=== PATIENT | male | born 1985 | race Caucasian/White ===

== ENCOUNTER 2020-03-22 17:11 | Inpatient (IN) | payer BC ==
--- NOTE | 2020-03-22 18:11 | BHS.RME ---
Substance Use & Tx History - Substance Use History Alcohol Substance amount: 1 pint Frequency of use: Daily Substance route: Oral Hypnotics/Other Sedatives Substance amount: klonopin Frequency of use: Daily Substance route: Oral - [facility] Treatment [facility] for Bipolar I , cociane induced jolene) Physical/Psych/Mental Status - Behavior General Behavior: Increased activity (restlessness, agitation) Eye Contact: Normal - Cooperativeness Cooperativeness: Cooperative - Thinking Thought Processes: Logical Thought content: Future oriented - Physical Health Problems Is patient presently having any pain?: Yes (right clavicle frx 5 weeks ago ) Does patient presently have any injuries (include location): Yes (as above ) Does patient currently have a fever: No CIWA Nausea/Vomitin Muscle Tremors: 4-Moderate,w/Arms Extend Anxiety: 4-Mod. Anxious/Guarded Agitation: 4-Moderately Restless Paroxysmal Sweats: No Perspiration Orientation: 1-Uncertain about Date Tacttile Disturbances: 0-None Auditory Disturbances: 2-Mild Harshness/Frighten Visual Disturbances: 3-Moderate Sensitivity Headache: 3-Moderate CIWA-Ar Total Score: 23
--- NOTE | 2020-03-22 18:16 | HP ---
CIWA Score Nausea/Vomitin Muscle Tremors: 4-Moderate,w/Arms Extend Anxiety: 4-Mod. Anxious/Guarded Agitation: 4-Moderately Restless Paroxysmal Sweats: No Perspiration Orientation: 1-Uncertain about Date Tacttile Disturbances: 0-None Auditory Disturbances: 2-Mild Harshness/Frighten Visual Disturbances: 3-Moderate Sensitivity Headache: 3-Moderate CIWA-Ar Total Score: 23 - Admission Criteria OASAS Guidelines: Admission for Medically Managed Detox: Requires at least one of the followin. CIWA greater than 12 2. Seizures within the past 24 hours 3. Delirium tremens within the past 24 hours 4. Hallucinations within the past 24 hours 5. Acute intervention needed for co occurring medical disorder 6. Acute intervention needed for co occurring psychiatric disorder 7. Severe withdrawal that cannot be handled at a lower level of care (continued vomiting, continued diarrhea, abnormal vital signs) requiring intravenous medication and/or fluids 8. Admission ROS [facility] Allergies/Adverse Reactions: Allergies Allergy/AdvReac Type Severity Reaction Status Date / Time Fish Containing Products Allergy Verified 03/22/20 18:08 Penicillins Allergy Verified 03/22/20 18:08 History of Present Illness: 34 y.o male requesting detox from alcohol and klonopin use . alcohol use - 1 pint x 3 years , w/d seizures , latest seizure 1 week ago , not on meds klonpin 8 mg /day > 10 years MMTP x 4 .5 years . 140 mg @ [facility] latest today , denies opiate use since being on Methadone , opiate since age 17 , IV since age 19 , stopped 4 years ago . cocaine - 1 gr/day via inhalation , IV in the past tobacco - 1/2 ppd since age 19 PMHX : denies PSych : bipolar d/o , suicide attempt " years ago " OD on heroin 2014 PSHx : denies Exam Limitations: Clinical Condition - Review of Systems Constitutional: Loss of Appetite EENT: reports: No Symptoms Reported Respiratory: reports: No Symptoms reported Cardiac: reports: No Symptoms Reported GI: reports: Diarrhea, Poor Appetite : reports: No Symptoms Reported Musculoskeletal: reports: Other (feet from walking , r clavicle 5 weeks ago [place] , [facility] , left AMA , went to [facility] did not fup w/ orthopedics as instructed.) Integumentary: reports: Other (groin from rubbing skin against pants w. walking) Neuro: reports: Headache, Tremors, Unsteady Gait Endocrine: reports: No Symptoms Reported Psychiatric: reports: Agitated, Anxious, Disorientated Patient History - Smoking Cessation Smoking history: Current every day smoker Have you smoked in the past 12 months: Yes Hx Chewing Tobacco Use: No Initiated information on smoking cessation: Yes 'Breaking Loose' booklet given: 03/22/20 Admission Physical Exam BHS - Physical General Appearance: Yes: Disheveled, Mild Distress, Moderate Distress, Tremorous, Anxious HEENTM: Yes: EOMI, Hearing grossly Normal, Normocephalic, Normal Voice Respiratory: Yes: Chest Non-Tender, Lungs Clear, Normal Breath Sounds, No Respiratory Distress, No Accessory Muscle Use Neck: Yes: No masses,lesions,Nodules, Trachea in good position Cardiology: Yes: Regular Rhythm, Regular Rate, S1, S2 Abdominal: Yes: Non Tender, Soft Back: Yes: Normal Inspection Musculoskeletal: Yes: Gait Steady, Joint Stiffness (right shoulder , mild tenderness to palpation lateral 1/3 rd clavicle , no edema/ no deformity) Extremities: Yes: Normal Capillary Refill, Normal Range of Motion, Non-Tender, Tremors Neurological: Yes: Motor Strength 5/5, Normal Mood/Affect, Disoriented, Depressed Affect Integumentary: Yes: Warm, Moist ([place] feet w/ blistering , reprots he has been wlaking/ on his feet x several days ' duration .) - Diagnostic (1) Alcohol abuse Current Visit: Yes Status: Chronic (2) Sedative dependence with current use Current Visit: Yes Status: Chronic (3) Cocaine dependence Current Visit: Yes Status: Chronic Qualifiers: Substance use status: uncomplicated Qualified Code(s): F14.20 - Cocaine dependence, uncomplicated (4) Opioid dependence on agonist therapy Current Visit: Yes Status: Chronic Breathalyzer - Breathalyzer Breathalyzer: 0 Urine Drug Screen - Test Device Lot number: [id number] Expiration date: 05/23/21 - Control Is test valid?: Yes - Results Drug screen NEGATIVE: No Urine drug screen results: LARISSA-Cocaine, FEN-Fentanyl, MTD-Methadone Inpatient Rehab Admission - Rehab Decision to Admit Inpatient rehab admission?: No
[2020-03-22] MEDS ORDERED: MAG HYDROX/AL HYDROX/SIMETH 30 ML UNIT-DOSE CUP PO PRN (18:21)
[2020-03-22] MEDS ORDERED: METHOCARBAMOL 500 MG TABLET PO PRN (18:21)
[2020-03-22] MEDS ORDERED: MAGNESIUM HYDROX 2400MG/30ML ORAL SUSPENSION 30 ML CUP PO PRN (18:21)
[2020-03-22] MEDS ORDERED: IBUPROFEN 400 MG TABLET (FP) PO PRN (18:21)
[2020-03-22] MEDS ORDERED: BISMUTH SUBSALICYLATE 524 MG/30 ML UD PO PRN (18:21)
[2020-03-22] MEDS ORDERED: MENTHOL/PHENOL 1 EACH UD MM PRN (18:21)
[2020-03-22] MEDS ORDERED: hydrOXYzine PAMOATE 25 MG CAPSULE (FP) PO PRN (18:21)
[2020-03-22] MEDS ORDERED: MAGNESIUM CITRATE 300 ML BOTTLE PO PRN (18:21)
[2020-03-22] MEDS ORDERED: ACETAMINOPHEN 325 MG TABLET (FP) PO PRN ×2 (18:21)
[2020-03-22 20:00] VITALS: BMI 34.9
[2020-03-22] MEDS ORDERED: chlordiazePOXIDE HCL 25 MG CAPSULE PO ONE (20:00)
[2020-03-22] MEDS: chlordiazePOXIDE HCL 25 MG CAPSULE PO SCH (22:23)
[2020-03-22] MEDS: THIAMINE HCL 100 MG TABLET (FP) PO SCH (22:23)
[2020-03-23] MEDS: chlordiazePOXIDE HCL 25 MG CAPSULE PO SCH ×4 (05:22→22:02)
[2020-03-23] MEDS: NICOTINE POLACRILEX 2 MG GUM BUC PRN ×2 (05:24→20:02)
[2020-03-23] MEDS ORDERED: METHADONE HCL 10 MG TABLET PO ONE (08:42)
[2020-03-23] MEDS ORDERED: METHADONE HCL 10 MG TABLET ONE (08:51)
[2020-03-23] MEDS ORDERED: METHADONE HCL 40 MG DISPERSABLE TABLET ONE (08:52)
[2020-03-23] MEDS ORDERED: METHADONE 120 MG, METHADONE 20 MG PO ONE (09:00)
--- NOTE | 2020-03-23 09:41 | CONSULT ---
[facility] Psychiatric Consult - Data Date of interview: 03/23/20 Admission source: [facility] Identifying data: Mr Montesinos is a 34 years old single male, unemployed receiving unemployment benefit, homeless seeking detox treatment for alcohol, cocaine and benzodiazepine Substance Abuse History: Reports history of alcohol, cocaine and klonopin use. Refer to addiction counselor's summary for further information Medical History: Unremarkable. Patient is on methadone 140 mg/day from [facility]. Smokes 10 cigarettes daily Psychiatric History: Reports that his first psychiatric contact occured at age 27 when he was admitted to [facility] for a manic episode. Reports that he was diagnosed with Bipolar 1 Disorder and started on [place], Gabapentin and Klonopin. Reports 2 subsequent psychiatric hospitalizations at [facility] and most recently in November 2019 at [facility]. He was discharged on [place] 1200 mg/hs, Gabapentin 600 mg/tid and Remeron 15 mg/hs. Reports that he did not follow up with discharge referral instruction for aftercare. He was last prescribed these medications 2.5 week ago after completing inpatient rehabilitation at [facility]. Told service writer that he last took medications 1.5 weeks ago. Reports that his most recent [facility] care was in 2018 at [facility] in [place], [place]. Reports one previous suicidal attempt via overdose on heroinyears ago. At present, denies experiencing psychotic, manic or depressive symptoms, S/H ideations. However, reports feeling anxious and sleeping poorly Physical/Sexual Abuse/Trauma History: Denies history of abuse as a child or DV relationship as an adult Mental Status Exam - Mental Status Exam Alert and Oriented to: Time, Place, Person Cognitive Function: Fair Patient Appearance: Disheveled Mood: Anxious Affect: Appropriate Patient Behavior: Cooperative Speech Pattern: Clear Voice Loudness: Normal Thought Process: Intact, Goal Oriented Thought Disorder: Not Present Hallucinations: Denies Suicidal Ideation: Denies Homicidal Ideation: Denies Insight/Judgement: Poor Sleep: Poorly Appetite: Good Muscle strength/Tone: Normal Gait/Station: Normal Psychiatric Findings - Problem List ([place] 1, 2,3) (1) Bipolar 1 disorder Current Visit: Yes Status: Chronic (2) Substance-induced anxiety disorder Current Visit: Yes Status: Acute (3) Substance-induced sleep disorder Current Visit: Yes Status: Acute (4) Alcohol dependence with withdrawal, uncomplicated Current Visit: Yes Status: Acute (5) Cocaine dependence Current Visit: Yes Status: Chronic Qualifiers: Substance use status: uncomplicated Qualified Code(s): F14.20 - Cocaine dependence, uncomplicated (6) Sedative dependence with current use Current Visit: Yes Status: Acute (7) Opioid dependence on agonist therapy Current Visit: Yes Status: Chronic (8) Nicotine dependence Current Visit: Yes Status: Chronic - Initial Treatment Plan Initial Treatment Plan: 1) Resume [place] 1200 mg po HS, Gabapentin 600 mg po TID and Remeron 15 mg po HS. 2) Continue inpatient detoxification
--- NOTE | 2020-03-23 10:03 | PN ---
S CIWA - CIWA Score Nausea/Vomitin-Mild Nausea/No Vomiting Muscle Tremors: 4-Moderate,w/Arms Extend Anxiety: 3 Agitation: 3 Paroxysmal Sweats: 3 Orientation: 0-Oriented Tacttile Disturbances: 0-None Auditory Disturbances: 0-None Visual Disturbances: 0-None Headache: 0-None Present CIWA-Ar Total Score: 14 S Progress Note (SOAP) Subjective: sweats shakes interrupted sleep agitation nausea body aches Objective: 03/23/20 10:02 Vital Signs Temperature 97.5 F L 03/23/20 08:48 Pulse Rate 65 03/23/20 08:48 Respiratory Rate 20 03/23/20 08:48 Blood Pressure 119/71 03/23/20 08:48 O2 Sat by Pulse Oximetry (%) 98 03/23/20 05:45 labs pending aaox3 ambulating no acute distress Assessment: 03/23/20 10:02 withdrawals Plan: continue detox increase fluids zofran sl motrin/tylenol pnr roboxin prn
[2020-03-23] MEDS: PRENATAL VITAMINS W/ FOLIC ACID TABLET (FP) PO SCH (10:24)
--- NOTE | 2020-03-23 10:40 | EKG ---
Test Reason : Blood Pressure : / mmHG Vent. Rate : 057 BPM Atrial Rate : 057 BPM P-R Int : 140 ms QRS Dur : 084 ms QT Int : 444 ms P-R-T Axes : 041 031 051 degrees QTc Int : 432 ms SINUS BRADYCARDIA OTHERWISE NORMAL ECG NO PREVIOUS ECGS AVAILABLE Confirmed by Tang Quigley MD ([id number]) on 03/23/2020 10:39:38 AM Referred By: Confirmed By:Tang Quigley MD
[2020-03-23 10:49] LABS: HEMATOCRIT 40.7 % (35.4-49); HEMOGLOBIN 13.2 GM/dL (11.7-16.9); MCH 24.9 pg (25.7-33.7); MCHC 32.4 g/dl (32.0-35.9); MEAN CELL VOLUME 76.9 fl (80-96); MEAN PLT VOLUME 10.7 fl (7.5-11.1); PLATELET COUNT 174 K/MM3 (134-434); RBC 5.29 M/mm3 (4.00-5.60); RDW 15.3 % (11.9-15.9); WHITE BLOOD COUNT 7.2 K/mm3 (4.0-10.0)
[2020-03-23 11:01] LABS: ALBUMIN 3.5 g/dl (3.4-5.0); BILIRUBIN,TOTAL 0.5 mg/dL (0.2-1); BLOOD UREA NITROGEN 13.6 mg/dL (7-18); CALCIUM 8.5 mg/dL (8.5-10.1); CREATININE 0.9 mg/dL (0.55-1.3); POTASSIUM 3.6 mmol/L (3.5-5.1); TOT PROT 6.8 g/dl (6.4-8.2)
[2020-03-23] MEDS: chlordiazePOXIDE HCL 25 MG CAPSULE PO PRN ×2 (12:40→20:01)
[2020-03-23] MEDS: GABAPENTIN PO SCH ×2 (15:24→22:03)
[2020-03-23] MEDS: THIAMINE HCL 100 MG TABLET (FP) PO SCH (22:03)
[2020-03-23] MEDS: PATIENT'S OWN MEDICATION (NON-FORMULARY) (Mirtazapine [Remeron -] 15 MG) PO SCH (22:03)
[2020-03-23] MEDS: MELATONIN 5 MG TABLETS PO PRN (22:03)
[2020-03-23] MEDS: LITHIUM CARBONATE PO SCH (22:03)
[2020-03-24] MEDS ORDERED: METHADONE HCL 10 MG TABLET ONE (04:11)
[2020-03-24] MEDS ORDERED: METHADONE HCL 40 MG DISPERSABLE TABLET ONE (04:12)
[2020-03-24] MEDS: chlordiazePOXIDE HCL 25 MG CAPSULE PO SCH ×4 (05:23→22:43)
[2020-03-24] MEDS: METHADONE 120 MG, METHADONE 20 MG PO SCH (05:23)
[2020-03-24] MEDS: GABAPENTIN PO SCH ×3 (05:24→22:41)
[2020-03-24] MEDS ORDERED: METHADONE HCL 40 MG DISPERSABLE TABLET PO SCH (06:00)
--- NOTE | 2020-03-24 10:38 | PN ---
[facility] CIWA - CIWA Score Nausea/Vomitin-Mild Nausea/No Vomiting Muscle Tremors: 3 Anxiety: 2 Agitation: 2 Paroxysmal Sweats: 2 Orientation: 0-Oriented Tacttile Disturbances: 0-None Auditory Disturbances: 0-None Visual Disturbances: 0-None Headache: 0-None Present CIWA-Ar Total Score: 10 S Progress Note (SOAP) Subjective: nausea sweats tired interrupted sleep Objective: 03/24/20 10:37 Vital Signs Temperature 98.2 F 03/24/20 08:31 Pulse Rate 76 03/24/20 08:31 Respiratory Rate 18 03/24/20 08:31 Blood Pressure 124/69 03/24/20 08:31 O2 Sat by Pulse Oximetry (%) 97 03/24/20 05:52 Laboratory Tests 03/23/20 03/23/20 03/23/20 07:50 07:50 07:50 WBC 7.2 RBC 5.29 Hgb 13.2 Hct 40.7 MCV 76.9 L MCH 24.9 L MCHC 32.4 RDW 15.3 Plt Count 174 MPV 10.7 Sodium 139 Potassium 3.6 Chloride 105 Carbon Dioxide 30 Anion Gap 5 L BUN 13.6 Creatinine 0.9 Est GFR (CKD-EPI)AfAm 129.61 Est GFR (CKD-EPI)NonAf 111.83 Random Glucose 103 Calcium 8.5 Total Bilirubin 0.5 AST 19 ALT 23 Alkaline Phosphatase 78 Total Protein 6.8 Albumin 3.5 Syphilis Serology Non-reactive labs noted aaox3 ambulating no acute distress Assessment: 03/24/20 10:38 withdrawals Plan: continue detox increase fluids
[2020-03-24] MEDS: PRENATAL VITAMINS W/ FOLIC ACID TABLET (FP) PO SCH (10:41)
[2020-03-24] MEDS: chlordiazePOXIDE HCL 25 MG CAPSULE PO PRN (14:45)
[2020-03-24] MEDS: PATIENT'S OWN MEDICATION (NON-FORMULARY) (Mirtazapine [Remeron -] 15 MG) PO SCH (22:42)
[2020-03-24] MEDS: THIAMINE HCL 100 MG TABLET (FP) PO SCH (22:42)
[2020-03-24] MEDS: LITHIUM CARBONATE PO SCH (22:42)
[2020-03-24] MEDS: MELATONIN 5 MG TABLETS PO PRN (22:44)
[2020-03-25] MEDS ORDERED: chlordiazePOXIDE HCL 10 MG CAPSULE PO PRN
[2020-03-25] MEDS ORDERED: METHADONE HCL 10 MG TABLET ONE (04:25)
[2020-03-25] MEDS ORDERED: METHADONE HCL 40 MG DISPERSABLE TABLET ONE (04:26)
[2020-03-25] MEDS: GABAPENTIN PO SCH ×2 (05:13→13:20)
[2020-03-25] MEDS: METHADONE 120 MG, METHADONE 20 MG PO SCH (05:14)
[2020-03-25] MEDS: chlordiazePOXIDE HCL 10 MG CAPSULE PO SCH ×2 (05:14→10:31)
[2020-03-25] MEDS: NICOTINE POLACRILEX 2 MG GUM BUC PRN ×2 (05:15→10:33)
[2020-03-25] MEDS: PRENATAL VITAMINS W/ FOLIC ACID TABLET (FP) PO SCH (10:31)
--- NOTE | 2020-03-25 11:23 | PN ---
[facility] CIWA - CIWA Score Nausea/Vomitin-Mild Nausea/No Vomiting Muscle Tremors: 2 Anxiety: 2 Agitation: 2 Paroxysmal Sweats: No Perspiration Orientation: 0-Oriented Tacttile Disturbances: 1-Very Mild Itch/Numbness Auditory Disturbances: 0-None Visual Disturbances: 0-None Headache: 1-Very Mild CIWA-Ar Total Score: 9 S Progress Note (SOAP) Subjective: alert,irritable,anxious,interrupted sleep,pain in the body, Objective: 03/25/20 11:21 Vital Signs Temperature 97.7 F 03/25/20 08:39 Pulse Rate 82 03/25/20 08:39 Respiratory Rate 18 03/25/20 08:39 Blood Pressure 116/63 03/25/20 08:39 O2 Sat by Pulse Oximetry (%) 97 03/25/20 06:16 Laboratory Last Values WBC 7.2 K/mm3 (4.0-10.0) 03/23/20 07:50 RBC 5.29 M/mm3 (4.00-5.60) 03/23/20 07:50 Hgb 13.2 GM/dL (11.7-16.9) 03/23/20 07:50 Hct 40.7 % (35.4-49) 03/23/20 07:50 MCV 76.9 fl (80-96) L 03/23/20 07:50 MCH 24.9 pg (25.7-33.7) L 03/23/20 07:50 MCHC 32.4 g/dl (32.0-35.9) 03/23/20 07:50 RDW 15.3 % (11.9-15.9) 03/23/20 07:50 Plt Count 174 K/MM3 (134-434) 03/23/20 07:50 MPV 10.7 fl (7.5-11.1) 03/23/20 07:50 Sodium 139 mmol/L (136-145) 03/23/20 07:50 Potassium 3.6 mmol/L (3.5-5.1) 03/23/20 07:50 Chloride 105 mmol/L (98-107) 03/23/20 07:50 Carbon Dioxide 30 mmol/L (21-32) 03/23/20 07:50 Anion Gap 5 MMOL/L (8-16) L 03/23/20 07:50 BUN 13.6 mg/dL (7-18) 03/23/20 07:50 Creatinine 0.9 mg/dL (0.55-1.3) 03/23/20 07:50 Est GFR (CKD-EPI)AfAm 129.61 03/23/20 07:50 Est GFR (CKD-EPI)NonAf 111.83 03/23/20 07:50 Random Glucose 103 mg/dL (74-106) 03/23/20 07:50 Calcium 8.5 mg/dL (8.5-10.1) 03/23/20 07:50 Total Bilirubin 0.5 mg/dL (0.2-1) 03/23/20 07:50 AST 19 U/L (15-37) 03/23/20 07:50 ALT 23 U/L (13-61) 03/23/20 07:50 Alkaline Phosphatase 78 U/L (45-117) 03/23/20 07:50 Total Protein 6.8 g/dl (6.4-8.2) 03/23/20 07:50 Albumin 3.5 g/dl (3.4-5.0) 03/23/20 07:50 Syphilis Serology Non-reactive (NONREACTIVE) 03/23/20 07:50 Assessment: 03/25/20 11:22 withdrawal symptom Plan: continue detox librium regimen
[2020-03-25 13:29] VITALS: BP 141/75; PULSE 90; TEMP 97.9
--- NOTE | 2020-03-25 14:18 | PN ---
[facility] CIWA - CIWA Score Nausea/Vomitin-No Nausea/No Vomiting Muscle Tremors: 1-None Visible, but [place] Anxiety: 1-Mildly Anxious Agitation: 0-Normal Activity Paroxysmal Sweats: No Perspiration Orientation: 0-Oriented Tacttile Disturbances: 0-None Auditory Disturbances: 0-None Visual Disturbances: 0-None Headache: 0-None Present CIWA-Ar Total Score: 2 BHS Progress Note (SOAP) Subjective: alert,feel better,no complain Objective: 03/25/20 14:14 Vital Signs Temperature 97.9 F 03/25/20 12:43 Pulse Rate 90 03/25/20 12:43 Respiratory Rate 19 03/25/20 12:43 Blood Pressure 141/75 03/25/20 12:43 O2 Sat by Pulse Oximetry (%) 98 03/25/20 12:43 Assessment: 03/25/20 14:16 no withdrawal symptom Plan: stable for discharge ,follow up with after care program as arrangement
--- NOTE | 2020-03-25 14:19 | DS ---
[facility] Detox Discharge Summary Admission Date: 03/22/20 Discharge Date: 03/25/20 - History Present History: Alcohol Dependence, Cocaine Dependence, Sedative Dependence, MMTP Additional Comments: alert,oriented x 3 lung clear by auscultation bilaterally abdomen soft,no pain,no tenderness ambulation on the unit steady gait no withdrawal symptom stable for discharge,no suicidal,no homicidal declined rehab follow up with methadone maintenance clinic and own psychiatrist as arrangment total time spending on discharge is 35 minutes Pertinent Past History: bipolar1 disorder nicotine dependence - Physical Exam Results Vital Signs: Vital Signs Temperature 97.9 F 03/25/20 12:43 Pulse Rate 90 03/25/20 12:43 Respiratory Rate 19 03/25/20 12:43 Blood Pressure 141/75 03/25/20 12:43 O2 Sat by Pulse Oximetry (%) 98 03/25/20 12:43 Pertinent Admission Physical Exam Findings: withdrawal signs and symptom Laboratory Last Values WBC 7.2 K/mm3 (4.0-10.0) 03/23/20 07:50 RBC 5.29 M/mm3 (4.00-5.60) 03/23/20 07:50 Hgb 13.2 GM/dL (11.7-16.9) 03/23/20 07:50 Hct 40.7 % (35.4-49) 03/23/20 07:50 MCV 76.9 fl (80-96) L 03/23/20 07:50 MCH 24.9 pg (25.7-33.7) L 03/23/20 07:50 MCHC 32.4 g/dl (32.0-35.9) 03/23/20 07:50 RDW 15.3 % (11.9-15.9) 03/23/20 07:50 Plt Count 174 K/MM3 (134-434) 03/23/20 07:50 MPV 10.7 fl (7.5-11.1) 03/23/20 07:50 Sodium 139 mmol/L (136-145) 03/23/20 07:50 Potassium 3.6 mmol/L (3.5-5.1) 03/23/20 07:50 Chloride 105 mmol/L (98-107) 03/23/20 07:50 Carbon Dioxide 30 mmol/L (21-32) 03/23/20 07:50 Anion Gap 5 MMOL/L (8-16) L 03/23/20 07:50 BUN 13.6 mg/dL (7-18) 03/23/20 07:50 Creatinine 0.9 mg/dL (0.55-1.3) 03/23/20 07:50 Est GFR (CKD-EPI)AfAm 129.61 03/23/20 07:50 Est GFR (CKD-EPI)NonAf 111.83 03/23/20 07:50 Random Glucose 103 mg/dL (74-106) 03/23/20 07:50 Calcium 8.5 mg/dL (8.5-10.1) 03/23/20 07:50 Total Bilirubin 0.5 mg/dL (0.2-1) 03/23/20 07:50 AST 19 U/L (15-37) 03/23/20 07:50 ALT 23 U/L (13-61) 03/23/20 07:50 Alkaline Phosphatase 78 U/L (45-117) 03/23/20 07:50 Total Protein 6.8 g/dl (6.4-8.2) 03/23/20 07:50 Albumin 3.5 g/dl (3.4-5.0) 03/23/20 07:50 Syphilis Serology Non-reactive (NONREACTIVE) 03/23/20 07:50 Vital Signs Temperature 97.9 F 03/25/20 12:43 Pulse Rate 90 03/25/20 12:43 Respiratory Rate 19 03/25/20 12:43 Blood Pressure 141/75 03/25/20 12:43 O2 Sat by Pulse Oximetry (%) 98 03/25/20 12:43 - Treatment Hospital Course: Detox Protocol Followed, Detoxed Safely, Responded well, Discharged Condition Good Patient has Accepted a Rehab Referral to: declined - Medication Discharge Medications: Ambulatory Orders Gabapentin [Neurontin -] 600 mg PO TID 03/22/20 [place] Carbonate [Eskalith -] 1,200 mg PO HS 03/22/20 Mirtazapine [Remeron -] 15 mg PO DAILY 03/22/20 - Diagnosis (1) Alcohol dependence with withdrawal, uncomplicated Current Visit: Yes Status: Acute (2) Sedative dependence with current use Current Visit: Yes Status: Acute (3) Bipolar 1 disorder Current Visit: Yes Status: Chronic (4) Cocaine dependence Current Visit: Yes Status: Chronic Qualifiers: Substance use status: uncomplicated Qualified Code(s): F14.20 - Cocaine dependence, uncomplicated (5) Nicotine dependence Current Visit: Yes Status: Chronic (6) Opioid dependence on agonist therapy Current Visit: Yes Status: Chronic - AMA Did Patient Leave Against Medical Advice: No
[2020-03-26] MEDS ORDERED: chlordiazePOXIDE HCL 10 MG CAPSULE PO SCH (05:00)
[2020-03-27] MEDS ORDERED: chlordiazePOXIDE HCL 10 MG CAPSULE PO ONE (05:00)
== END 2020-03-25 14:15 | disposition home or self-care (01) | DRG 773 ==
LOC: YASAS 17:11 → Y6N 19:33
PROVIDERS: ADMIT Allergy & Immunology; ATTEND Allergy & Immunology
PROC: HZ2ZZZZ Detoxification Services for Substance Abuse Treatment (ICD-10-PCS; principal; 2020-03-22)
DX: F10.230 Alcohol dependence with withdrawal, uncomplicated (principal); F11.20 Opioid dependence, uncomplicated; F13.20 Sedative, hypnotic or anxiolytic dependence, uncomplicated; F14.20 Cocaine dependence, uncomplicated; F17.210 Nicotine dependence, cigarettes, uncomplicated; F19.280 Other psychoactive substance dependence with psychoactive substance-induced anxiety disorder; F19.282 Other psychoactive substance dependence with psychoactive substance-induced sleep disorder; F31.89 Other bipolar disorder; Z56.0 Unemployment, unspecified; Z59.0 Homelessness
CPT/HCPCS: 36415; 80053; 85027; 86780; 93005; 93010; U0003